=== PATIENT | female | born 1995 | race Caucasian/White ===

== ENCOUNTER → 2016-12-16 | Day surgery (SDC) | payer OTHER ==
[~2016-12-16] MED LIST: BUPIVACAINE HCL PF 0.75% 30 ML VIAL ONE; LACTATED RINGER'S 1000 ML INJ 1,000 ML ONE; LIDOCAINE 1.5%/EPINEPHrine 1:200,000 PF SOLN 30 ML AMP ONE; MIDAZOLAM HCL 5 MG/ML VIAL (1 ML) ONE; ONDANSETRON HCL 4 MG/2 ML VIAL IV PUSH ONE; PROPOFOL 500 MG/50 ML BTL IV ONE; ceFAZolin INJ 1,000 MG VIAL ONE
--- NOTE | 2016-12-16 22:15 | MP ---
cc: STEF CARRASQUILLO DATE OF SURGERY 12/16/2016 PREOPERATIVE DIAGNOSES 1. Right ankle syndesmosis (distal tibial fibular ligament) disruption with shift of the mortise. 2. Right proximal fibular shaft fracture. POSTOPERATIVE DIAGNOSES 1. Right ankle syndesmosis (distal tibial fibular ligament) disruption with shift of the mortise. 2. Right proximal fibular shaft fracture. SURGEON Stef Carrasquillo MD [employer] Staff. PROCEDURE 1. Right ankle open reduction and internal fixation of distal tibial fibular ligament (syndesmosis) disruption. 2. Right leg proximal fibular shaft fracture nonoperative treatment. ESTIMATED BLOOD LOSS Minimal. ANESTHESIA Regional block and general anesthesia. PROCEDURE DETAILS The patient had regional anesthesia performed. She was brought back to operative theater. General anesthesia was performed. She received intravenous Ancef. The right lower extremity was prepped and draped in usual sterile fashion. We took fluoroscopic imaging showing disruption of the mortise with shift of the talus laterally and we performed a dorsiflexion, external rotation maneuver identifying significant instability of the mortise. With my fingers I was able to close reduce the mortise back into neutral position. We made incision over the lateral aspect of the ankle, dissected down to the bone elevating the fascia over the lateral malleolus. We then used a 4.0 drill bit to drill three cortices which included both cortices of the fibula and then one cortex of the tibia. This was done with slight angulation from dorsal to anterior. This was done at the level of the mortise. We then used the small drill bit to drill the fourth cortices of the tibia. We used a 4.0 low profile screw with the mortise reduced with my hand and also the ankle held in neutral position. We had excellent purchase of the screw and this stabilized the mortise anatomically. We then placed another screw in percutaneous fashion a little more proximal to this other screw. This was a 3.5 screw. These cortices were not overdrilled. This helped provide a second point of fixation of the mortise. We took final fluoroscopic images including AP lateral and mortise view and we also took some stress views with dorsiflexion and external rotation showing that the mortise now was completely stable with the tibiotalar joint anatomic. The wounds were irrigated and closed with 2-0 Vicryl followed by 3-0 nylon. The patient was placed into a splint with the ankle in neutral position. Postoperative plan is non-weightbearing for 3 months. The patient will require planned, staged removal of hardware in approximately 3 months MD JASWANT Mai/BARBARA /3:47 PM /9:58 PM MTDArgelia
== END | disposition home or self-care (01) ==
LOC: EDSEX 13:00 → ESDC 13:00
PROVIDERS: ATTEND Orthopaedic Surgery
DX: S93.431A Sprain of tibiofibular ligament of right ankle, initial encounter (principal); S82.401A Unspecified fracture of shaft of right fibula, initial encounter for closed fracture
CPT/HCPCS: 01480; 27829; 64450; 73610; 76000; C1713; J0690; J2250; J2405; J7120

== ENCOUNTER → 2017-03-27 | Day surgery (SDC) | payer OTHER ==
[~2017-03-27] MED LIST changes: +BUPIVACAINE HCL PF 0.5% 30 ML VIAL ONE; -BUPIVACAINE HCL PF 0.75% 30 ML VIAL ONE; +BUPIVACAINE/EPINEPHRINE 0.5% 50 ML VIAL ONE; +KETOROLAC TROMETHAMINE 30 MG/ML (IVP) VIAL IV PUSH ONE; -LIDOCAINE 1.5%/EPINEPHrine 1:200,000 PF SOLN 30 ML AMP ONE; +MIDAZOLAM HCL 2 MG/2 ML VIAL ONE; -MIDAZOLAM HCL 5 MG/ML VIAL (1 ML) ONE; +PROPOFOL 200 MG/20 ML AMP IV ONE; -PROPOFOL 500 MG/50 ML BTL IV ONE
--- NOTE | 2017-03-30 08:33 | MP ---
cc: STEF CARRASQUILLO DATE OF SURGERY: 03/27/2017 PREOPERATIVE DIAGNOSIS Right ankle retained hardware, status post open reduction, internal fixation of syndesmotic sprain. POSTOPERATIVE DIAGNOSIS Right ankle retained hardware, status post open reduction, internal fixation of syndesmotic sprain. SURGEON Dr. Stef Carrasquillo. [employer] MAINTENANCE TECHNICIAN Staff. PROCEDURE Right ankle removal of implant deep, syndesmotic screws x2. ESTIMATED BLOOD LOSS Minimal. TOURNIQUET TIME Zero minutes. ANESTHESIA General. DETAILS OF PROCEDURE The patient was brought back to the operating theater. General anesthesia was administered. She was placed in a supine position. She received intravenous Ancef. The right lower extremity was prepped and draped in the usual sterile fashion. We gave infiltration of 0.25% Marcaine with epinephrine to the lateral aspect of the ankle. We made two incisions over the previous syndesmotic screw sites. We dissected down through the deep tissue to the periosteum and identified the heads of the screws. We removed both screws uneventfully. Both screws had very good purchase. We took fluoroscopic imaging including AP, lateral and mortise view and also a stress mortise view, and we found no instability about the syndesmosis after the hardware was removed. The mortise was anatomic. The wound was irrigated and then closed with 2-0 Vicryl followed by Steri-Strips and a dressing was applied. POSTOPERATIVE PLAN The patient will initially start with 50% weightbearing with the use of a fracture boot and as soon as the wounds are healing well we can advance her to full weightbearing. MD JASWANT Mai/DULCE MARIA /12:58 PM /8:23 AM
== END | disposition home or self-care (01) ==
LOC: ESDC 11:38
PROVIDERS: ATTEND Orthopaedic Surgery
DX: Z47.2 Encounter for removal of internal fixation device (principal)
CPT/HCPCS: 01480; 20680; 73610; 76000; J0690; J1885; J2250; J2405; J3010; J7120